=== PATIENT | female | born 1965 | race Two or more races ===

== ENCOUNTER 2017-11-13 13:52 | Outpatient (CLI) | payer OTHER | END 2017-11-13 15:45 | disposition home or self-care (01) | LOC: RAD 13:52 | DX: R10.84 Generalized abdominal pain (principal); E07.9 Disorder of thyroid, unspecified; D64.89 Other specified anemias; M25.551 Pain in right hip; M25.552 Pain in left hip; G89.11 Acute pain due to trauma; T79.8XXA Other early complications of trauma, initial encounter; M25.531 Pain in right wrist; M25.521 Pain in right elbow ==

== ENCOUNTER 2018-01-08 07:27 | Outpatient (CLI) | payer OTHER | END 2018-01-08 12:12 | disposition home or self-care (01) | LOC: NUCLEAR 07:27 | DX: R52 Pain, unspecified (principal); R10.9 Unspecified abdominal pain; R19.7 Diarrhea, unspecified; M81.0 Age-related osteoporosis without current pathological fracture | CPT/HCPCS: 78227; A9537; 77080 ==

== ENCOUNTER → 2018-02-21 | Outpatient (CLI) | payer OTHER | END | disposition home or self-care (01) | LOC: RAD 07:56 | DX: R13.19 Other dysphagia (principal); R13.14 Dysphagia, pharyngoesophageal phase ==

== ENCOUNTER 2018-05-20 14:32 | Emergency (ER) | payer OTHER ==
[~2018-05-20] VITALS: Ht 152.4 cm; Wt 56.7 kg
[2018-05-20] MEDS ORDERED: TOPROL XL25 MG (15:30)
[2018-05-20] MEDS ORDERED: NEURONTIN300 MG (15:31)
[2018-05-20] MEDS ORDERED: [UNRECOGNIZED DRUG - OTHER] (15:31)
[2018-05-20] MEDS ORDERED: [UNRECOGNIZED DRUG - OTHER] (15:32)
== END 2018-05-20 18:41 | disposition home or self-care (01) ==
LOC: ER 14:32
DX: B34.9 Viral infection, unspecified (principal); R50.9 Fever, unspecified